=== PATIENT | female | born 1950 | race Caucasian/White ===

== ENCOUNTER 2017-02-10 20:27 | Emergency (ER) | payer OTHER ==
[~2017-02-10 20:27] MED LIST: AMLODIPINE10 M1 PO; ATORVASTATIN CA20 M1 PO; BENAZEPRIL10 M1 PO; GLIPIZIDE5 MG; GLUCOVANCE1 TA2 PO; GOOD SENSE ASPI81 M3 PO; METFORMIN500 M1 PO; TAMOXIFEN CITRA20 MG PO
[2017-02-10 21:19] VITALS: BP 143/83
== END 2017-02-10 21:20 | disposition home or self-care (01) ==
LOC: ED 20:27
DX: K05.10 Chronic gingivitis, plaque induced (principal); E78.5 Hyperlipidemia, unspecified; I10 Essential (primary) hypertension; E11.9 Type 2 diabetes mellitus without complications; Z85.3 Personal history of malignant neoplasm of breast; Z90.11 Acquired absence of right breast and nipple; Z79.84 Long term (current) use of oral hypoglycemic drugs; Z79.82 Long term (current) use of aspirin